=== PATIENT | male | born 1980 ===

== ENCOUNTER 2019-05-15 02:01 | Observation (INO) | payer OTHER ==
[2019-05-15] MEDS ORDERED: Ondansetron INJ* 2 MG/ML VIAL IV PRN ×2 (03:13→16:05)
[2019-05-15] MEDS ORDERED: Piperacillin/Tazobac ADVAN(*) 3.375 GM in NS 0.9% 100 ML* 100 ML IVPB ONE (03:13)
[2019-05-15] MEDS ORDERED: Acetaminophen TAB* 325 MG PO PRN (03:13)
[2019-05-15] MEDS ORDERED: Morphine INJ* 2 MG/ML 1 ML SYRINGE (TWO MG - NEW SYRINGE VERSION) IV PRN (03:17)
[2019-05-15] MEDS ORDERED: NS 0.9% 1000 ML** 1,000 ML IV SCH (03:30)
[2019-05-15] MEDS ORDERED: Zosyn per Pharmacy* NOTE FOLLOW UP SCH (04:00)
--- NOTE | 2019-05-15 05:35 | HP ---
CC: Odessa Piedra PA-C * ADMISSION HISTORY AND PHYSICAL: DATE OF ADMISSION: 05/15/19 PRIMARY CARE PROVIDER: Odessa Piedra PA-C of [facility]. MY ATTENDING WHILE IN THE HOSPITAL: Dr. Hardeep Ledezma.* (DICTATED BY SULMA RAMÍREZ) CHIEF COMPLAINT: Abdominal pain x1 day. HISTORY OF PRESENT ILLNESS: Mr. Stack is a 38-year-old male with no significant past medical history who presented to the emergency department after gradual onset of abdominal pain, which initially started in his epigastric region, then began to radiate into left lower quadrant and then over the period of several hours transitioned to his right lower quadrant. The patient had no associated nausea or vomiting. Retained a small amount of appetite, but this was significantly decreased. The patient had no fever, no chills. The patient had a bowel movement approximately noon on 05/14/19, which was nonbloody. The patient has never had episodes like this before. The patient has no recent weight loss or weight gain. The patient did come back from [facility] approximately 2 months ago, did visit [employer] in February of this year, but had no flu-like illnesses. The patient takes no chronic medications. The patient has taken no medications for this. The patient denies dizziness, chest pain, shortness of breath, palpitations. The patient rates his pain as at 4 right now, but at worst is 10/10 and has been fluctuating over the last day. The patient initially presented to [facility] Emergency Department and had a CT scan of his abdomen, which showed findings consistent with acute appendicitis. No other acute findings. The patient was transferred to this institution for surgical consultation and likely surgical intervention. We were asked to evaluate the patient for admission to the hospital. PAST MEDICAL HISTORY: None. PAST SURGICAL HISTORY: None. MEDICATIONS: None. ALLERGIES: None. FAMILY HISTORY: The patient's father of suicide. The patient's mother is alive and well. SOCIAL HISTORY: The patient does not smoke. The patient drinks occasionally. The patient denied illicit drug use. 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 The patient lives in [place] with his . The patient has no children. The patient's surrogate decision maker will be his , Clau. REVIEW OF SYSTEMS: A 10-point review of systems was reviewed and is negative except as above in the HPI. PHYSICAL EXAMINATION GENERAL: The patient is a 38-year-old male who appears stated age and sitting in bed, in no acute distress. VITAL SIGNS: At the time of evaluation, temperature 99.5, pulse rate 69, respiratory rate 17, oxygen saturation 94% on room air, blood pressure 120/78. HEENT: Head is normocephalic, atraumatic. Sclerae anicteric. No conjunctival injection. Nasal mucosa moist. Oral mucosa moist. No pharyngeal erythema, discharge, or exudate. NECK: Supple, nontender. No lymphadenopathy. No carotid bruits auscultated. No JVD. RESPIRATORY: Clear to auscultation bilaterally. No wheezes, rales, or rhonchi. Good air exchange bilaterally. CARDIAC: Regular rate and rhythm. No clicks, murmurs, gallops, or rubs. Pulses 2+ in bilateral dorsalis pedis, posterior tibialis, and radial areas. ABDOMEN: Soft. Tender to palpation at McBurney's point with no guarding. No rebound. Bowel sounds hypoactive in all 4 quadrants. No hepatosplenomegaly. No abdominal bruits auscultated. GENITOURINARY: No suprapubic or CVA tenderness. SKIN: Clean, dry, and intact. No rashes. NEUROLOGIC: Cranial nerves II through XII intact. No focal deficits. Alert and oriented x3. PSYCHIATRIC: Pleasant and cooperative. DIAGNOSTIC STUDIES/LAB DATA: Laboratory data from outside hospital: White blood cell count 12.72, hemoglobin 16.1, platelet count 257. Sodium 130, potassium 3.6, chloride 98, carbon dioxide 27, anion gap 5, BUN 15, creatinine 1.1, glucose 114, lactic acid 1.0, calcium 9.5. Bilirubin 0.4, AST 18, ALT 43, alkaline phosphatase 70, protein 8.3, albumin 4.2, globulin 4.1. Urinalysis unremarkable. Studies: Abdomen and pelvis CT: Appendix is dilated measuring 12 mm in diameter and evidence of periappendiceal fat stranding consistent with acute appendicitis without signs of perforation. Otherwise, unremarkable except for bibasilar atelectatic change. ASSESSMENT AND PLAN: IMPRESSION: Mr. Stack is a 38-year-old male with no significant past medical history, who presented to an outside hospital with 1 day of intermittent, sometimes severe abdominal pain, diagnosed with acute appendicitis, who has been transferred to [facility] for surgical evaluation and likely surgical intervention on his acute appendicitis. 1. Acute appendicitis. The patient has CT findings consistent with acute appendicitis as well as physical exam and history. The patient has no signs of rupture at this point. The patient has been transferred to [facility]. The patient's case was discussed with Dr. Lisa Mendez by outside hospital provider and she will see the patient in consultation in the morning likely for surgical intervention on his appendix. The patient was given Zosyn and morphine at outside hospital. These will be continued. At this time, the patient's creatinine was slightly elevated likely related to lack of oral intake from appendicitis. The patient will be started on fluids preoperatively. The patient has no past medical history. No chest pain, no signs of heart failure, no kidney failure. The patient has an RCRI of 0 indicating 3.9% chance of METS at 30 days. This likely very much overestimates the patient's risks. The patient is capable of much more than 4 METS at baseline and has no functional limitations. The patient is a low risk for this low risk surgery. 2. Presumed acute kidney injury. The patient's creatinine is 1.1. It is unknown what the patient's baseline is. This will be checked in the morning after the patient has had fluids and if the patient's creatinine remains elevated, this could be at the patient's baseline and should be followed routinely through his primary care provider. 3. DVT prophylaxis: The patient with SCDs in preparation of surgery and given the patient is a low risk. 4. FEN: The patient will be n.p.o. with normal saline at an hour. 9. Disposition: The patient will be admitted on observation in the hospital likely pending surgical intervention of appendicitis. TIME SPENT: Approximately 40 minutes was spent on admission of this patient, 30 of which is spent [id number] with the patient obtaining history and physical and discussing treatment plan. The plan was discussed with my attending, Dr. Hardeep Ledezma and he is in agreement. SULMA RAMÍREZ [id number]/[facility] #: [id number] NAOMI
[2019-05-15] MEDS ORDERED: ZOSYN 3.375 GM Q8H per EXTENDED INFUSION IVPB SCH ×2 (08:00)
--- NOTE | 2019-05-15 08:44 | CONSULT ---
Consult Consult: Consult General Surgery Reason for Consult: Acute Appendicitis Chief Complaint: HPI:38 yo male with no medical history began having left sided crampy abdominal pain saturday evening. originally crampy in nature, waxing and waning. nothing improved it. pain then became sharp, more across the lower abdomen, eventually becoming focussed in the RLQ. Denies nausea, vomiting, diarrhea. CO feeling feverish, sweats PMH: denies PSH:denies SOCIAL HX: TOB neg ETOH occassionally FAMILY HISTORY: GF with Prostate Cancer no history of bleeding or anesthesia problems ALLERGIES: NKDA MEDICATIONS: no history of blood thinners no regular medicines ROS: Other than as per HPI a 14 point Review of Systems was negative PHYSICAL EXAM: VS: Vital Signs Temp 98.4 F 05/15/19 07:34 Pulse 89 05/15/19 07:34 Resp 16 05/15/19 07:34 BP 117/75 05/15/19 07:34 Pulse Ox 96 05/15/19 07:34 Intake & Output 05/14/19 05/15/19 05/15/19 18:59 06:59 18:59 Intake Total 0 Output Total 0 300 Balance 0 -300 Weight 219 lb Intake: Oral 0 Output: Urine 0 300 Other: Estimated Void Large # Voids 1 HEENT: NCAT, neck supple. 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
[2019-05-15] MEDS ORDERED: Bupivacaine 0.25% EPI 200,000* 30 ML SDV ONE (09:08)
[2019-05-15] MEDS ORDERED: ceFOXitin 2 GM IVPREMIX* 2 GM/50 ML BAG ONE (10:02)
[2019-05-15] MEDS ORDERED: fentaNYL* 50 MCG/ML 2 ML VIAL (100 MCG VIAL) ONE ×2 (10:20→12:24)
[2019-05-15] MEDS ORDERED: Propofol* 10 MG/ML 20 ML BTL ONE (10:25)
[2019-05-15] MEDS ORDERED: Glycopyrrolate IV* 0.2 MG/ML 1 ML VIAL ONE (10:26)
[2019-05-15] MEDS ORDERED: Succinylcholine* 20 MG/ML 10 ML VIAL ONE (10:26)
[2019-05-15] MEDS ORDERED: Rocuronium* 10 MG/ML VIAL ONE (10:26)
[2019-05-15] MEDS ORDERED: Naloxone* 0.4 MG/ML 1 ML VIAL IV PRN ×2 (11:06→16:05)
[2019-05-15] MEDS ORDERED: fentaNYL* 50 MCG/ML 2 ML VIAL (100 MCG VIAL) IV PRN ×2 (11:06→16:05)
[2019-05-15] MEDS ORDERED: Dexamethasone IV* 4 MG/ML 1 ML (4 MG) ONE (11:09)
[2019-05-15] MEDS ORDERED: Ondansetron INJ* 2 MG/ML VIAL ONE (11:09)
[2019-05-15] MEDS ORDERED: Phenylephrine 40 MCG/ML SYRINGE ONE (11:11)
[2019-05-15] MEDS ORDERED: Sugammadex * 500 MG/5 ML VIAL IV PUSH ONE (11:25)
--- NOTE | 2019-05-15 11:29 | BRIEFOPN ---
Brief Operative/Procedure Note - Operation Details Pre-Op Diagnosis: Appendicitis Post-Op Diagnosis: Appendicitis Procedures: Laparoscopic appendectomy Surgeon(s)/Proceduralists: Dr. Alvarez. Assist: SULMA Minaya Anesthesia: GETA Estimated Blood Loss: <25cc Findings: As above Specimen(s)/Culture(s) Description: Appendix Complications: None
--- NOTE | 2019-05-15 12:54 | OP ---
DATE OF OPERATION: 05/15/19 - ROOM #334 DATE OF : 78 SURGEON: Les Alvarez MD CONTENT ANALYST: SULMA Obrien ANESTHESIOLOGIST: Dr. Brandin Bird ANESTHESIA: General with local. PRE-OP DIAGNOSIS: Acute appendicitis. POST-OP DIAGNOSIS: Acute suppurative appendicitis. OPERATIVE PROCEDURE: Laparoscopic appendectomy. ESTIMATED BLOOD LOSS: Minimal. IV FLUIDS: 1 L of crystalloids. SPECIMENS: Appendix. DRAINS: None. COMPLICATIONS: None. WOUND CLASSIFICATION: III. FINDINGS: The patient had acute suppurative appendicitis without evidence of gangrene or perforation or abscess. This mainly involved the distal portion of the appendix. BRIEF HISTORY: Mr. Lul Stack is a 38-year-old gentleman who presented to the emergency room at [facility] last night with right lower quadrant abdominal pain. He had mild elevation of his white blood cell count, a CT scan , which showed findings consistent with acute appendicitis. He was transferred to [facility] early this morning Review of his workup as well as physical exam and history, he is now to undergo an urgent laparoscopic appendectomy for acute appendicitis. The procedure was discussed with the patient and the risk include but not limited to bleeding, infection, intra-abdominal abscess formation, injury to peritoneal and retroperitoneal structures, possibility of a drain, possibility of an open procedure, sepsis, general anesthetic risks, and deep vein thrombosis were all explained. DESCRIPTION OF PROCEDURE: Written informed consent was obtained, the abdomen was marked with an indelible ink and preoperative antibiotics were administered. The patient was taken to the operating room, placed in the supine position. Sequential compression devices and a warming blanket were applied. General anesthesia was administered and the abdomen was prepped and draped in the usual sterile fashion. Timeout verification was completed. A small transverse incision was made just above the umbilicus and the peritoneal cavity was entered under direct vision. A 12 mm blunt port was inserted into the abdomen and was insufflated to 15 mmHg. Insufflation was performed using the closed system AirSeal device and a 5 mm port was then placed in the left lateral abdominal wall in a lower position and as well as the suprapubic position, and the second AirSeal tubing for removal of the carbon dioxide was placed on the suprapubic port. The patient was placed in Trendelenburg position. He was noted to have some turbid fluid in the pelvis and right lower quadrant, but there was no evidence of peritonitis. His terminal ileum appeared to be unremarkable. Its distal portion was adherent to some inflammatory process in the right lower quadrant and this was bluntly pulled up to expose a suppuratively inflamed appendix mainly in his distal half without evidence of gangrene or perforation. There is some lateral peritoneal attachments of the cecum, which was normal, which I needed to divide to bring the cecum up into view to identify the base of the appendix, however. The mesoappendix was then divided from the tip to the base with a LigaSure device sequentially. The base of the appendix was healthy and viable as well as the cecum and this was then divided with an Endo CHARLIE carrillo load of a 45 mm stapler. The appendix was placed in the Endo Catch bag and brought out through the umbilical incision. The right lower quadrant and pelvis were irrigated with saline. The staple line was intact without bleeding. No bleeding was identified in the area of dissection. The insufflation of CO2 was then completely evacuated using the AirSeal device. All ports removed. The umbilical fascia was then closed with interrupted 0 Vicryl suture at the fascial level. All three incisions were approximated with subcuticular 4-0 Vicryl. Steri-Strips were applied. The patient tolerated the procedure well, was taken to the recovery room in stable condition. [id number]/[facility] #: [id number] NAOMI
[2019-05-15 13:40] VITALS: BP 112/73
[2019-05-15] MEDS ORDERED: Acetaminophen IV 1GM/100ML * 1,000 MG/100 ML VIAL IVPB ONE (16:05)
== END 2019-05-15 14:08 | disposition home or self-care (01) ==
LOC: SSU 03:15
PROVIDERS: ADMIT Family Medicine; ATTEND Surgery
DX: K35.80 Unspecified acute appendicitis (principal); R10.9 Unspecified abdominal pain
CPT/HCPCS: 88304; 96374; 96375; G0378; J0330; J0694; J1100; J2270; J2405; J2543; J2704; J3010